=== PATIENT | female | born 1955 | race Caucasian/White ===

== ENCOUNTER → 2019-07-03 | Outpatient (CLI) | payer OTHER ==
--- NOTE | 2019-07-03 13:44 | XR ---
EXAMINATION TYPE: XR lumbar spine 2 or 3V DATE OF EXAM: 07/03/2019 CLINICAL HISTORY: pain TECHNIQUE: Three views of the lumbar spine are submitted. COMPARISON: None. FINDINGS: There are 5 lumbar type vertebral bodies identified. The lumbar spine shows satisfactory alignment w ithout evidence of acute fracture or dislocation. Vertebral body heights are within normal limits. Moderate to severe degenerative narrowing lumbar spine. Grade 1 anterolisthesis L4 and L5 measuring 7 mm. Severe facet joint arthropathy. The overlying soft tissue appears unremarkable. IMPRESSION: No acute fracture or dislocation is seen in the lumbar spine. ICD 10 NO FRACTURE, INITIAL EVALUATION
== END | disposition home or self-care (01) ==
LOC: RADXRMAIN 13:09
PROVIDERS: ATTEND Family Medicine
DX: M54.5 Low back pain (principal)
CPT/HCPCS: 72100

== ENCOUNTER → 2022-11-02 | Outpatient (CLI) | payer MEDICARE ==
--- NOTE | 2022-11-05 06:48 | BD ---
EXAMINATION TYPE: Axial Bone Density DATE OF EXAM: 11/02/2022 CLINICAL HISTORY: 67 years old Female. ICD-10 CODE: N95.1 MENOPAUSAL AND FEMALE CLIMACTERIC STATES Height: 63 Weight: 189 FRAX RISK QUESTIONS: Alcohol (3 or more units per day): no Family History (Parent hip fracture): no History of Fracture in Adulthood: no Secondary Osteoporosis: no Rheumatoid Arthritis: no Current Tobacco Use: yes RISK FACTORS HISTORY OF: Family History of Osteoporosis: no Active: yes Diet low in dairy products/other sources of calcium: yes Postmenopausal woman: yes, age 55 Lost more than 2 inches in height since high school: no Frequent falls: no Poor Health: no MEDICATIONS: Additional Medications: yes pain meds, HBP meds, depression meds EXAM MEASUREMENTS: Bone mineral densitometry was performed using the [employer] System. Bone mineral density as measured about the Lumbar spine is: ----- L1-L4(G/cm2): 1.325 T Score Values are as follows: ----- L1: 0.8 ----- L2: 0.8 ----- L3: 1.0 ----- L4: 1.9 ----- L1-L4: 1.2 Z Score Values are as follows: ----- L1: 1.8 ----- L2: 1.8 ----- L3: 1.9 ----- L4: 2.8 ----- L1-L4: 2.1 Bone mineral density baseline Bone mineral density about the R hip (g/cm2): 0.837 Bone mineral density about the L hip (g/cm2): 0.859 T Score values are as follows: -----R Neck: -1.8 -----L Neck: -1.8 -----R Total: -1.4 -----L Total: -1.2 Z Score values are as follows: -----R Neck: -0.7 -----L Neck: -0.7 -----R Total: -0.5 -----L Total: -0.3 Bone mineral density baseline FRAX%s: The graph provided illustrates a 10.0% chance for a major osteoporotic fx and a 1.5% chance f or the hips probability for fx in 10 years time. IMPRESSION: Osteopenia (T Score between -2.5 and -1). There is slightly increased risk of fracture and the patient may be considered for treatment. Re-Screen 2-5 years. NOTE: T-SCORE=SD OF THE YOUNG ADULT MEAN.
--- NOTE | 2022-11-05 10:15 | MM ---
Reason for Exam: Screening (asymptomatic). Patient History: Menarche at age 12. First Full-Term at age 16. Postmenopausal. Maternal aunt had breast cancer, age 45. Risk Values: Lula 5 year model risk: 1.2%. NCI Lifetime model risk: 4.2%. Tissue Density: There are scattered fibroglandular densities. Findings: Analyzed By CAD. There is no suspicious group of microcalcifications in either breast. No suspicious mass within the right breast. Round 5 mm asymmetry within the left breast centrally at middle depth on the CC view. Overall Assessment: Incomplete: need additional imaging evaluation, BI-RAD 0 Management: Diagnostic Mammogram of the left breast. A clinical breast exam by your physician is recommended on an annual basis and results should be correlated with mammographic findings. [facility] will attempt to contact patient to return for supplemental views and ultrasound if indicated. Electronically signed and approved by: Rocky Newman D.O.
== END | disposition home or self-care (01) ==
LOC: RADMAMWWP 15:14
PROVIDERS: ATTEND Family Medicine
DX: Z12.31 Encounter for screening mammogram for malignant neoplasm of breast (principal); M85.89 Other specified disorders of bone density and structure, multiple sites; Z78.0 Asymptomatic menopausal state; Z80.3 Family history of malignant neoplasm of breast
CPT/HCPCS: 77063; 77067; 77080

== ENCOUNTER → 2022-11-07 | Outpatient (CLI) | payer MEDICARE ==
--- NOTE | 2022-11-07 11:25 | MM ---
Reason for Exam: Additional evaluation requested from abnormal screening. Last screening mammogram was performed less than 1 month ago. Patient History: Menarche at age 12. First Full-Term at age 16. Postmenopausal. Maternal aunt had breast cancer, age 45. Risk Values: Lula 5 year model risk: 1.2%. NCI Lifetime model risk: 4.2%. Prior Study Comparison: 11/02/2022 Bilateral MG 3D screening mammo w/cad, [facility]. Tissue Density: Left: There are scattered fibroglandular densities. Findings: Analyzed By CAD. Asymmetry on screening mammogram does not persist with compression. No new suspicious mass or group of microcalcifications within the left breast. Overall Assessment: Negative, BI-RAD 1 Management: Screening Mammogram of both breasts in 1 year. A clinical breast exam by your physician is recommended on an annual basis and results should be correlated with mammographic findings. This exam should not preclude additional follow-up of suspicious palpable abnormalities. Results were given to the patient verbally at the time of exam. Electronically signed and approved by: Rocky Newman D.O.
== END | disposition home or self-care (01) ==
LOC: RADMAMWWP 10:16
PROVIDERS: ATTEND Family Medicine
DX: R92.8 Other abnormal and inconclusive findings on diagnostic imaging of breast (principal); Z78.0 Asymptomatic menopausal state; Z80.3 Family history of malignant neoplasm of breast
CPT/HCPCS: 77061; 77065

== ENCOUNTER → 2023-03-22 | Outpatient (CLI) | payer MEDICARE ==
--- NOTE | 2023-03-22 16:21 | XR ---
EXAMINATION TYPE: XR foot complete 3 views LT DATE OF EXAM: 03/22/2023 Comparison: None Clinical History: 68-year-old female M79. 672 PAIN IN LEFT FOOT Findings: Diffuse osteopenia. Type I accessory navicular. Mild degenerative change first MTP joint. Moderate si zed plantar heel spur. There may be some underlying pes planus. Osteopenia. Mild degenerative change tibiotalar joint. Allowing for the degree of osteopenia, no acute fracture seen. Impression: Osteopenia limiting the assessment. Allowing for this limitation, no definite acute fracture. 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 Mild degenerative change tibiotalar joint.
== END | disposition home or self-care (01) ==
LOC: RADXRMAIN 14:35
PROVIDERS: ATTEND Family Medicine
DX: M85.872 Other specified disorders of bone density and structure, left ankle and foot (principal); M77.32 Calcaneal spur, left foot; M19.072 Primary osteoarthritis, left ankle and foot